=== PATIENT | female | born 1985 | race African-American/Black ===

== ENCOUNTER 2016-12-06 07:11 | Emergency (ER) ==
[2016-12-06 07:21] VITALS: BP 114/71
--- NOTE | 2016-12-06 07:59 | PROVIDER DOCUMENTATION ---
HPI-EENT General - General Chief Complaint: Eye Complaint Stated Complaint: EYE COMPLAINT Time Seen by Provider: 12/06/16 07:46 Source: patient Allergies/Adverse Reactions: Patient Allergies Allergy/AdvReac Type Severity Reaction Status Date / Time No Known Allergies Allergy Verified 12/06/16 07:22 Home Medications: Home Medication List Medication Instructions Recorded Confirmed Last Taken Type Naphazoline HCl/Phenir Mal 2 drop RIGHT EYE Q6H PRN PRN #15 ml 12/06/16 Unknown Rx [Naphcon-A Eye Drops] - History of Present Illness-EENT General Nature of Presenting Problem: says has had intermittant problems with R eye for sev months. Starts as eye feeling irritated, then she rubs it, after that, says R uooer eyelid is swollen , is closed more, and has vision blurring. no fever. Also describes freq H/A, that feel tight. like a headband is in too tight. EENT Location: reports: eye (R) Quality of Pain: reports: none Severity: reports: mild Onset/Duration: reports: other (sev months) Timing: reports: intermittent Associated Symptoms: reports: denies symptoms Similar Symptoms Previously?: Yes Recently seen or treated by another doctor?: No - Eyes Eye Problem Symptoms: reports: eyelid swelling, blurred vision Apparent Injury?: No Eye Problem Context: reports: none Review of Systems - Adult - REVIEW OF SYSTEMS - ADULT Constitutional: reports: no symptoms reported Eyes: reports: see HPI Ears, Nose, Mouth & Throat: reports: other (post nasal drip) Cardiovascular: reports: no symptoms reported Respiratory: reports: cough Gastrointestinal: reports: no symptoms reported Genitourinary: reports: no symptoms reported Musculoskeletal: reports: no symptoms reported Integumentary: reports: no symptoms reported Neurological: reports: no symptoms reported Psychiatric: reports: no symptoms reported Endocrine: reports: other (hot flashes at night) Hematologic/Lymphatic: reports: no symptoms reported Allergic/Immunologic: reports: no symptoms reported Past History - Adult - PAST MEDICAL HISTORY-ADULT Review of Records: reports: Medications Reviewed Major Childhood Illnesses: reports: denies history Cardiovascular: reports: denies history Respiratory: reports: denies history Gastrointestinal: reports: denies history Obstetrical/Gynecological: reports: denies history Genitourinary: reports: denies history Musculoskeletal: reports: denies history Neurological: reports: denies history Psychiatric: reports: denies history Endocrine/Immune: reports: denies history Other Conditions: reports: denies history - PRIOR SURGERIES/PROCEDURES Surgical/Procedure History: reports: - PRIOR HOSPITALIZATIONS Prior Hospitalizations: reports: for other non-related - IMMUNIZATION STATUS Childhood Immunizations: See Nurse Assessment Flu Vaccine: See Nurse Assessment - FAMILY HISTORY Family History: reviewed, not pertinent - SOCIAL HISTORY Smoking: denies Physical Exam- EENT - Physical Exam EENT Initial Vital Signs Reviewed: Yes General Appearance: appears well, alert, no apparent distress Eye Exam: bilateral eye: normal inspection, PERRL, EOMI, other (neither eyelid has any swelling or edema, no scleral injection) Ear Exam: bilateral ear: auricle normal Nasal Exam: normal inspection Throat Exam: normal mouth inspection, pharynx normal Neck: non-tender, full range of motion, supple Respiratory: lungs clear, normal breath sounds Cardiovascular: normal peripheral pulses, regular rate, rhythm, no gallop, no murmur Abdominal Exam: non tender, soft Back Exam: normal inspection, no CVA tenderness, no vertebral tenderness Extremity: normal range of motion, non-tender, normal gait, normal inspection Integumentary: normal color, normal turgor, warm/dry 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
== END 2016-12-06 09:25 | disposition home or self-care (01) ==
LOC: P.ED 07:11
DX: H01.9 Unspecified inflammation of eyelid (principal); H53.8 Other visual disturbances; R51 Headache; R05 Cough; R09.82 Postnasal drip